=== PATIENT | male | born 1965 | race Caucasian/White ===

== ENCOUNTER 2022-12-10 23:45 | Observation (INO) | payer OTHER, SELFPAY ==
--- NOTE | ~2022-12-10 | CT_ITS ---
Non-contrast CT scan of the Abdomen and Pelvis Clinical indication: Abdominal pain Technique: 2.5 mm axial scans were obtained through the abdomen and pelvis without intravenous or or al contrast. Dose reduction technique was used on this scan by utilizing automated exposure control a nd iterative reconstruction technique. The dose-length product (DLP) was 870.28 mGy-cm. Findings: Images through the lung bases reveal no abnormalities. There is no evidence of renal or ureteral calculi. The kidneys and the ureters are nondilated. The liver, spleen, pancreas, gallbladder, and adrenals appear normal. There are atherosclerotic calci fications of the aorta. There is no evidence of bowel obstruction. There is moderate enlargement of stool multiple small spec kled radiodensities within the large bowel contents. Images through the pelvis were performed. There is no evidence of ascites or lymphadenopathy. Urinary bladder unremarkable. Prostate gland is enlarged. Impression: Moderate stool with small speckled radiodensities in the large bowel contents. Correlate for constipa tion and any possibility of pica or other foreign material ingestion. Reviewed, dictated and finalized at location . Impression: Moderate stool with small speckled radiodensities in the large bowel contents. Correlate for constipation and any possibility of pica or other foreign materia l ingestion.
[2022-12-10 23:47] VITALS: BP 140/60; PULSE 71; RESP 15; TEMP 36.4; O2SAT 100
[2022-12-11] VITALS (8 sets, daily range): BP systolic 115–152; BP diastolic 50–102; PULSE 70–78; RESP 11–20; TEMP 36.3–37.2; O2SAT 99–100; BMI 32.5
[2022-12-11 00:30] LABS: Basophils Percent Auto 0.2 % (0.2-1.2); Eosinophils Absolute Auto 0.1 K/mm3 (0-0.3); Eosinophils Percent Auto 0.7 % (0-4.4); Hematocrit 25.2 % (42.0-52.0); Hemoglobin 9.1 g/dL (14.0-18.0); Immature Granulocyte Absolute 0.03 K/mm3 (0.00-0.031); Immature Granulocyte Percent A 0.4 % (0-0.5); Lymphocytes Absolute Auto 0.67 K/mm3 (0.9-3.2); Mean Corpuscular HGB Conc 36.1 g/dl (32-36); Mean Corpuscular Hemoglobin 32.2 pg (26-34); Mean Platelet Volume 10.9 fl (7.4-10.4); Monocytes Absolute Auto 1.1 K/mm3 (0.1-0.6); Monocytes Percent Auto 12.5 % (2.6-8.5); Neutrophils Absolute Auto 6.6 K/mm3 (1.3-6.7); Neutrophils Percent Auto 78.2 % (45.5-73.1); Platelet Count Result 163 k/mm3 (150-375); Red Blood Count 2.83 M/mm3 (4.6-6.20); Red Cell Distribution Width 13.6 % (11.5-14.5); White Blood Count 8.4 K/mm3 (4.5-10.0)
[2022-12-11 00:44] LABS: Appearance Urine Clear (Clear); Bacteria Urine 1+ /hpf; Bilirubin Urine Negative (Negative); Blood Urine 2+ (Negative); Color Urine Yellow (Yellow); Glucose Urine UA 1+ mg/dL (Negative); Ketones Urine Negative (Negative); Leukocyte Esterase Ur 1+ LEU/UL (Negative); Nitrate Urine Negative (Negative); Non Pathogenic Casts 0-2; Protein Urine 3+ mg/dL (Negative); RBC Urine 0-2 /hpf (0-2); Specific Grav Ur 1.008 (1.001-1.035); Squamous Epithelial Cell Urine None seen /hpf (Few); Urobilinogen Urine 0.2 mg/dL (<2.0); WBC Clumps Urine Present /HPF; pH Urine 6.5 (5.0-9.0)
[2022-12-11 00:52] LABS: Alanine Aminotransferase 29 U/L (6-50); Albumin Level 3.8 g/dL (3.5-5.1); Alkaline Phosphatase 37 U/L (38-126); Anion Gap 14 mmol/L (8-16); Aspartate Amino Transferase 37 U/L (17-59); Bilirubin,Total 0.4 mg/dL (0.2-1.3); Blood Urea Nitrogen 64 mg/dL (9-20); Calcium 9.3 mg/dL (8.4-10.2); Carbon Dioxide 22 mmol/L (22-30); Chloride 82 mmol/L (98-107); Estimated CRCL calculation 16 ml/min; Estimated Glomerular Filt Rate 12; Glucose 69 mg/dL (65-110); Lipase 49 U/L (23-300); Potassium 3.5 mmol/L (3.4-5.0); Sodium 118 mmol/L (137-145)
[2022-12-11 01:01] LABS: Add Urine Microscopic? YES
[2022-12-11] MEDS: SODIUM CHLORIDE 0.9% IV 2,000 ML 999 ML IV CONT (02:05)
--- NOTE | 2022-12-11 05:00 | ED.GENADULT ---
HPI - General Adult General Chief complaint: Abdominal Pain Stated complaint: abd pain Time Seen by Provider: 12/11/22 00:28 History of Present Illness HPI narrative: this is a 49-year-old male who has been constipated x1 week. Patient has been taking multiple stool softeners and enemas without relief. Yesterday he started developed diffuse crampy abdominal pain throughout his entire abdomen. the pain is constant and getting worse. He has never had pain like this before there are no exacerbating relieving factors. He is passing gas. He had a small bowel movement yesterday. He denies fever chills nausea vomiting chest pain difficulty breathing. Patient has had an AV fistula placed for pending kidney failure. His assembler small products is Dr. Nguyen Related Data Allergies Allergy/AdvReac Type Severity Reaction Status Date / Time No Known Allergies Allergy Verified 12/10/22 23:54 [facility] Past Medical History Medical History Chronic kidney disease Diabetes Exam Narrative: APPEARANCE: No apparent distress. Head: atraumatic. EYES: EOMI, NOSE: Atraumatic NECK: Trachea midline RESPIRATORY: No increased rate of breathing, CTAB CARDIOVASCULAR: RRR, AV fistula in left upper extremity ABDOMINAL: Abdomen is soft nontender with no guarding or rebound MUSCULOSKELETAl: No obvious deformities NEURO: Alert. Moving 4/4 extremities SKIN:: Warm, dry. Normal color PSYCHIATRIC: Normal affect Course Vital Signs Vital signs: Vital Signs Temperature 97.5 F L 12/10/22 23:47 Pulse Rate 71 12/10/22 23:47 Respiratory Rate 15 12/10/22 23:47 Blood Pressure 140/60 12/10/22 23:47 Pulse Oximetry 100 12/10/22 23:47 Oxygen Delivery Room Air 12/10/22 23:47 Temperature 97.5 F L 12/10/22 23:47 Pulse Rate 75 12/11/22 03:13 Respiratory Rate 11 L 12/11/22 03:13 Blood Pressure 146/102 H 12/11/22 03:13 Pulse Oximetry 99 12/11/22 03:13 Oxygen Delivery Room Air 12/10/22 23:47 Medical Decision Making [facility] Narrative Medical decision making narrative: -Course: 49-year-old male presenting with 1 week of abdominal pain and constipation. CT showed a colon was distended with a large amount of stool and thickening of the rectal wall. This could be due to understand siddiqui versus a lesion. Additionally the patient's laboratory studies came back for significant hyponatremia and hypochloremia. The patient is on hydrochlorothiazide and is taking sodium bicarb. however I have no baseline of which to compare if this is his baseline state or worse than usual. Patient will be admitted hospital for further management of his hyponatremia and abdominal pain. 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 -Independent interpretation of studies: Sodium 118, chloride 82. BUN 64 and creatinine 4.9. urine showed 11-20 white blood cells and white blood cell clumps. Plus one leuk esterase. Patient notes he is having dysuria. Will be treated with ceftriaxone. -Discussion of Management/Consultants: Dr. Monroe - hospitalist -Interventions: 2 L normal saline -Shared decision making / Disposition: Admitted. Vital Signs Vital Signs: Vital Signs Temperature 97.5 F L 12/10/22 23:47 Pulse Rate 71 12/10/22 23:47 Respiratory Rate 15 12/10/22 23:47 Blood Pressure 140/60 12/10/22 23:47 Pulse Oximetry 100 12/10/22 23:47 Oxygen Delivery Room Air 12/10/22 23:47 Temperature 97.5 F L 12/10/22 23:47 Pulse Rate 75 12/11/22 03:13 Respiratory Rate 11 L 12/11/22 03:13 Blood Pressure 146/102 H 12/11/22 03:13 Pulse Oximetry 99 12/11/22 03:13 Oxygen Delivery Room Air 12/10/22 23:47 Lab Data 12/11/22 00:23 12/11/22 00:23 Labs: Lab Res
--- NOTE | 2022-12-11 05:13 | PM.IMHP ---
H&P: HPI History of Present Illness Date/Time: 12/11/22 05:13 Chief Complaint: Abdominal pain Narrative: 57-year-old male with past medical history significant for end-stage renal disease, patient had fistula placed is still maturing, type diabetes mellitus, hypertension, comes to the emergency room due to abdominal pain, nausea but no vomiting, cough. Denies any fevers, rigors, chills, sputum production, shortness of breath. Preliminary workup was significant for sodium [address] of abdomen and pelvis was reported as: Non-contrast CT scan of the Abdomen and Pelvis Clinical indication: Abdominal pain Technique:? 2.5 mm axial scans were obtained through the abdomen and pelvis without intravenous or oral contrast. Dose reduction technique was used on this scan by utilizing automated exposure control and iterative reconstruction technique. The dose-length product (DLP) was 870.28 mGy-cm. Findings:? Images through the lung bases reveal no abnormalities. There is no evidence of renal or ureteral calculi. The kidneys and the ureters are nondilated. The liver, spleen, pancreas, gallbladder, and adrenals appear normal. There are atherosclerotic calcifications of the aorta. ? There is no evidence of bowel obstruction. There is moderate enlargement of stool multiple small speckled radiodensities within the large bowel contents. Images through the pelvis were performed. There is no evidence of ascites or lymphadenopathy. Urinary bladder unremarkable. Prostate gland is enlarged. Impression: Moderate stool with small speckled radiodensities in the large bowel contents. Correlate for constipation and any possibility of pica or other foreign material ingestion. Review of Systems Review of Systems: Abdominal pain Constitutional: Constitutional: Denies chills, Denies fever(s), Denies night sweats and Reports poor appetite Eyes: Eyes: Denies change in vision ENT: Denies dysphagia and Denies odynophagia Cardiovascular: Cardiovascular: Denies chest pain, Denies irregular heart rhythm, Denies palpitations, Denies dyspnea on exertion, Denies orthopnea and Denies paroxysmal nocturnal dyspnea Respiratory: Respiratory: Denies chest congestion and Denies cough Gastrointestinal: Gastrointestinal: Reports abdominal pain, Denies melena, Reports bloating, Denies hematochezia, Reports constipation and Reports nausea Genitourinary: Genitourinary: Denies dysuria Musculoskeletal: Musculoskeletal: Denies arthralgias, Denies joint swelling and Denies muscle weakness Integumentary/Breasts: Skin/Breast: Denies rash Neurologic: Denies focal weakness and Denies Sensory deficit (Neuro) Psychiatric: Psychiatric: Reports no additional psychiatric complaints and Reports as per HPI Endocrine: Endocrine: Denies cold intolerance, Denies excessive sweating, Denies flushing, Denies heat intolerance, Denies polyphagia, Denies polydipsia, Denies polyuria and Denies palpitations Hematologic/Lymphatic: Hematologic/Lymphatic: Reports no additional hematologic/lymphatic complaints and Reports as per HPI Allergic/Immunologic: Allergic/Immunologic: Reports no additional allergic/immunologic complaints and Reports as per HPI PMFSH Past Medical History Medical History Chronic kidney disease Diabetes Social History Social History Smoking status: Never smoker Alcohol intake: current Drinks per week: 5 Substance use: never Lack of Transportation: No Lack of Food: Never True Current Housing: I Have Housing Concerned About Future Housing: No Difficulty Paying Gas/Electric Bills: No Difficulty Paying for Meds: No Currently Unemployed: No Education: Master's Degree or Higher Difficulty w/ Childcare or Family Care: No Spiritual care concerns: No Meds Home Medications and Allergies Home Medications Medication
--- NOTE | 2022-12-11 06:46 | ADMGEN ---
This patient, Ricco Foote, was admitted to [facility] Surg Room 306-02. Patient/family oriented to hospital policies and general routines including ID bracelet, bed and alarms, visiting hours, pain management, procedures, bathroom and other care routines, personal items, smoking policy, room service/diet, and visiting hours. Information on how to activate the Rapid Response Team has been discussed. Patient/Family are encouraged to report perceived risks to care and to ask questions if they do not understand what they are told or what they should do.
[2022-12-11 07:42] LABS: Glucose Point of Care 38 mg/dl (65-105)
[2022-12-11 07:58] LABS: Glucose Point of Care 84 mg/dl (65-105)
[2022-12-11] MEDS: SODIUM CHLORIDE 0.9% IV 1,000 ML 75 ML IV CONT (08:38)
[2022-12-11 08:42] LABS: Alanine Aminotransferase 27 U/L (6-50); Albumin Level 3.4 g/dL (3.5-5.1); Alkaline Phosphatase 35 U/L (38-126); Anion Gap 13 mmol/L (8-16); Aspartate Amino Transferase 32 U/L (17-59); Bilirubin,Total 0.3 mg/dL (0.2-1.3); Blood Urea Nitrogen 60 mg/dL (9-20); Calcium 8.8 mg/dL (8.4-10.2); Carbon Dioxide 20 mmol/L (22-30); Chloride 91 mmol/L (98-107); Estimated CRCL calculation 17 ml/min; Estimated Glomerular Filt Rate 13; Glucose 107 mg/dL (65-110); Potassium 3.4 mmol/L (3.4-5.0); Sodium 124 mmol/L (137-145)
--- NOTE | 2022-12-11 09:00 | PCRCNOTE ---
RT spoke to patient. Patient refused hospital CPAP at this time.
--- NOTE | 2022-12-11 09:53 | P.PNIM_ITS ---
Progress Note: A&P Assessment and Plan (1) Hyponatremia: Code(s): E87.1 - Hypo-osmolality and hyponatremia Status: Acute Assessment and Plan: * Na upon arrival 118 * currently 124 * 2L bolus given in the ED * Stated that is chronic * Continue fluids for now * Continue to trend labs * Urine studies ordered * Nephrology consulted thank you for your help (2) Constipation: Qualifiers: Constipation type: unspecified constipation type Qualified Code(s): K59.00 - Constipation, unspecified Code(s): K59.00 - Constipation, unspecified Status: Acute Assessment and Plan: * Presented to the ED with complaints of constipation * This would be his third visit over the last week * CT does show moderate stool burden * Miralax, colace, lactulose, suppositories, enemas ordered * Consider GI consult * Digital disimpaction (3) Chronic kidney disease: Qualifiers: Chronic kidney disease stage: stage 5, not on chronic dialysis Qualified Code(s): N18.5 - Chronic kidney disease, stage 5 Code(s): N18.9 - Chronic kidney disease, unspecified Status: Acute Assessment and Plan: * Known history * Current BUN/Cr 60/4.70 * Fistula present awaiting to mature * Nephrology consulted * Continue to trend labs (4) Diabetes: Qualifiers: Diabetes mellitus complication status: without complication Diabetes mellitus 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 Diabetes mellitus type: type 2 Qualified Code(s): E11.9 - Type 2 diabetes mellitus without complications; Z79.4 - [facility]CI (current) use of insulin Code(s): E11.9 - Type 2 diabetes mellitus without complications Status: Acute Assessment and Plan: * Current glucose 107 * Continue home meds * Trend glucose * Adjust medication as indicated (5) Hypertension: Qualifiers: Hypertension type: primary hypertension Qualified Code(s): I10 - Essential (primary) hypertension Code(s): I10 - Essential (primary) hypertension Status: Acute Assessment and Plan: * BP is 152/76 * Continue home losartan, amlodipine, carvedilol * Trend blood pressure * adjust therapy as indicated Time Spent With Patient Time: 48 minutes Time with patient: Greater than 35 minutes Subjective Date/time seen: 12/11/22 09:00 Interval history: 12/11/22899 Patient is complaining of being uncomfortable. Patient stated that he just was released from [facility] last Wednesday and he was therefore constipation however he did have a small bowel movement there. He then went to another hospital. He stated that at [facility] given MiraLax and he can remember what else they gave him at the other hospital. he also is a patient of Dr. Alexander. He has not received any current dialysis and stated that he has not needed dialysis yet. He also stated that his sodium is chronically low. He denies any further symptoms including chest pain, shortness a breath, nausea, vomiting, diarrhea constipation. 12/11/22? 05:13 57-year-old male with past medical history significant for end-stage renal disease, patient had fistula placed is still maturing, type diabetes mellitus, hypertension, comes to the emergency room due to abdominal pain, nausea but no vomiting, cough.? Denies any fevers, rigors, chills, sputum production, shortness of breath. Preliminary workup was signific
--- NOTE | 2022-12-11 09:53 | PM.IMPN ---
Progress Note: A&P Assessment and Plan (1) Hyponatremia: Code(s): E87.1 - Hypo-osmolality and hyponatremia Status: Acute Assessment and Plan: Na upon arrival 118 currently 124 2L bolus given in the ED Stated that is chronic Continue fluids for now Continue to trend labs Urine studies ordered Nephrology consulted thank you for your help (2) Constipation: Qualifiers: Constipation type: unspecified constipation type Qualified Code(s): K59.00 - Constipation, unspecified Code(s): K59.00 - Constipation, unspecified Status: Acute Assessment and Plan: Presented to the ED with complaints of constipation This would be his third visit over the last week CT does show moderate stool burden Miralax, colace, lactulose, suppositories, enemas ordered Consider GI consult Digital disimpaction (3) Chronic kidney disease: Qualifiers: Chronic kidney disease stage: stage 5, not on chronic dialysis Qualified Code(s): N18.5 - Chronic kidney disease, stage 5 Code(s): N18.9 - Chronic kidney disease, unspecified Status: Acute Assessment and Plan: Known history Current BUN/Cr 60/4.70 Fistula present awaiting to mature Nephrology consulted Continue to trend labs (4) Diabetes: Qualifiers: Diabetes mellitus complication status: without complication Diabetes mellitus intermediate card tender insulin use: with intermediate card tender use Diabetes mellitus type: type 2 Qualified Code(s): E11.9 - Type 2 diabetes mellitus without complications; Z79.4 - technician terminal 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 (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) use of insulin Code(s): E11.9 - Type 2 diabetes mellitus without complications Status: Acute Assessment and Plan: Current glucose 107 Continue home meds Trend glucose Adjust medication as indicated (5) Hypertension: Qualifiers: Hypertension type: primary hypertension Qualified Code(s): I10 - Essential (primary) hypertension Code(s): I10 - Essential (primary) hypertension Status: Acute Assessment and Plan: BP is 152/76 Continue home losartan, amlodipine, carvedilol Trend blood pressure adjust therapy as indicated Time Spent With Patient Time: 48 minutes Time with patient: Greater than 35 minutes Subjective Date/time seen: 12/11/22 09:00 Interval history: 12/11/22899 Patient is complaining of being uncomfortable. Patient stated that he just was released from [facility] last Wednesday and he was therefore constipation however he did have a small bowel movement there. He then went to another hospital. He stated that at [facility] given MiraLax and he can remember what else they gave him at the other hospital. he also is a patient of Dr. Alexander. He has not received any current dialysis and stated that he has not needed dialysis yet. He also stated that his sodium is chronically low. He denies any further symptoms including chest pain, shortness a breath, nausea, vomiting, diarrhea constipation. 12/11/22? 05:13 57-year-old male with past medical history significant for end-stage renal disease, patient had fistula placed is still maturing, type diabetes mellitus, hypertension, comes to the emergency room due to abdominal pain, nausea but no vomiting, cough.? Denies any fevers, rigors, chills, sputum production, shortness of breath. Preliminary workup was significant for sodium [address] of abdomen and pelvis pending final report at this time Review of Systems Review of Systems: All systems reviewed & are unremarkable except as noted in HPI and below Exam Narrative: General: well-nourished, well-appearing 57-year-old male, sitting up in bed, comfortable, NARD Neuro: awake, alert and oriented x4, speech clear, no focal neuro deficits noted HEENMT: normocephalic, atraumatic, EOMI, sclerae anicteric, moist oral mucosa Respiratory: Clear to
--- NOTE | 2022-12-11 10:51 | PM.CNNEP ---
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, on sevelamer for high phosphorus -abdominal pain and constipation: Urine lytes, osmolality ordered already, maintain current, treat constipation On lactulose will follow (2) Chronic kidney disease: Qualifiers: Chronic kidney disease stage: stage 5, not on chronic dialysis Qualified Code(s): N18.5 - Chronic kidney disease, stage 5 Code(s): N18.9 - Chronic kidney disease, unspecified Status: Acute Plan see above discussion History of Present Illness Reason for Consult Consult date: 12/11/22 Reason for consult: chronic renal failure and hyponatremia Chief Complaint Chief complaint: Hyponatremia, Abdominal Pain History of Present Illness Narrative: 57 yo male, known for CKD stage 5 and DM, HTN, anemia, SHPT, recent admission to [facility] for hyponatremia, weakness, unwell, was on HCTZ and this was discontinued. His sodium improved and patient was placed on furosemide to help with fluid management. Now readmitted with nausea without emesis. Abdominal with constipation x 1 week. There is no swelling or SOB, imaging study CT through lower chest does not show fluid retention, abdominal CT shows the stool retention. Serum sodium at admission was 118, creatinine 6.9 mg/dL. Urine labs not done at admission. not on diuretics currently, is on dapagliflozin. Drank3 L of water yesterday, making urine, no swelling or SOB. Has slight headache and nausea, no other symptoms. No cramps, no falls. Is on sodium chloride drip and has improvement in sodium to 124. No uremic features, poor appetite currently due to the constipation. Has soft abdomen but diffuse abdominal pain. Passing gas, little piece of stool passed this am. Has an AVF in the left upper arm that is not ready to be used yet for dialysis. He has to have an angiogram to see if angioplasty of the AVF is required. Negative other systemic issues Review of Systems Review of Systems: All systems reviewed & are unremarkable except as noted in HPI and below (hpi) [facility] Past Medical History Medical History Chronic kidney disease Diabetes Social History Social History Smoking status: Never smoker Alcohol intake: current Drinks per week: 5 Substance use: never Lack of Transportation: No Lack of Food: Never True Current Housing: I Have Housing Concerned About Future Housing: No Difficulty Paying Gas/Electric Bills: No Difficulty Paying for Meds: No Currently Unemployed: No Education: Master's Degree or Higher Difficulty w/ Childcare or Family Care: No Spiritual care concerns: No Comments left upper arm AVF created in [place] [facility] Home Medications and Allergies Home Medications Medication Instructions Recorded Confirmed Type amlodipine 10 mg tablet 10 mg PO DAILY 12/11/22 12/11/22 History aspirin 81 mg tablet 81 mg PO DAILY 12/11/22 12/11/22 History bupropion HCl 150 mg 24 hr tablet, 150 mg PO DAILY 12/11/22 12/11/22 History extended release calcitriol 0.25 mcg capsule 0.25 mcg PO DAILY 12/11/22 12/11/22 History carvedilol 12.5 mg tablet 12.5 mg PO BID 12/11/22 12/11/22 History clopidogrel 75 mg tablet 75 mg PO DAILY 12/11/22 12/11/22 History dapagliflozin propanediol 10 mg 10 mg PO DAILY 12/11/22 12/11/22 History tablet (Farxiga) docusate sodium 100 mg capsule 100 mg PO DAILY PRN Constipation 12/11/22
[2022-12-11] MEDS: calcitrioL 0.25 MCG CAPSULE PO (11:27)
[2022-12-11] MEDS: SODIUM BICARBONATE TAB 650 MG TABLET PO ×2 (11:27→17:38)
[2022-12-11] MEDS: buPROPion HCL XL (24 HR) 150 MG TABCR PO (11:27)
[2022-12-11] MEDS: PRAVASTATIN SODIUM 20 MG TABLET 40 MG PO (11:27)
[2022-12-11] MEDS: amLODIPine BESYLATE 5 MG TABLET 10 MG PO (11:28)
[2022-12-11] MEDS: LOSARTAN POTASSIUM 50 MG TABLET PO ×2 (11:28→21:25)
[2022-12-11] MEDS: SEVELAMER CARBONATE 800 MG TABLET PO ×2 (11:28→17:37)
[2022-12-11] MEDS: carvediloL 12.5 MG TABLET PO ×2 (11:28→17:37)
[2022-12-11] MEDS: ASPIRIN 81 MG ENTERIC TABLET PO (11:28)
[2022-12-11] MEDS: CLOPIDOGREL BISULFATE 75 MG TABLET PO (11:28)
[2022-12-11 11:29] LABS: Glucose Point of Care 106 mg/dl (65-105)
[2022-12-11] MEDS: ACETAMINOPHEN 500 MG TABLET 1000 MG PO ×2 (12:27→21:25)
[2022-12-11] MEDS: MAGNESIUM CITRATE 300 ML BTL PO (12:27)
[2022-12-11] MEDS: DOCUSATE SODIUM 100 MG CAPSULE PO (12:28)
[2022-12-11] MEDS: BISACODYL 10 MG SUPPOSITORY RECTAL (12:28)
[2022-12-11] MEDS: LACTULOSE 20 GM/30 ML UDC PO (12:28)
[2022-12-11 16:41] LABS: Glucose Point of Care 166 mg/dl (65-105)
[2022-12-11] MEDS: METOCLOPRAMIDE HCL 5 MG TABLET PO ×2 (17:37→21:25)
[2022-12-11 18:07] LABS: Creatinine Urine 31.3 mg/dL; Urea Random Urine 259 MG/DL
[2022-12-11 18:19] LABS: Sodium Urine Random 15 meq/L
[2022-12-11 20:53] LABS: Glucose Point of Care 181 mg/dl (65-105)
[2022-12-12] MEDS: SODIUM CHLORIDE 0.9% IV 1,000 ML 75 ML IV CONT ×2 (03:03→18:52)
[2022-12-12 05:23] VITALS: BP 155/55; PULSE 91; RESP 16; TEMP 36.6; O2SAT 100
[2022-12-12] MEDS: METOCLOPRAMIDE HCL 5 MG TABLET PO ×4 (05:35→20:46)
[2022-12-12 06:24] LABS: Basophils Percent Auto 0.3 % (0.2-1.2); Eosinophils Absolute Auto 0.1 K/mm3 (0-0.3); Eosinophils Percent Auto 0.9 % (0-4.4); Hematocrit 27.9 % (42.0-52.0); Hemoglobin 9.6 g/dL (14.0-18.0); Immature Granulocyte Absolute 0.03 K/mm3 (0.00-0.031); Immature Granulocyte Percent A 0.3 % (0-0.5); Lymphocytes Percent Auto 6.7 % (18.3-44.2); Mean Corpuscular HGB Conc 34.4 g/dl (32-36); Mean Corpuscular Hemoglobin 31.5 pg (26-34); Mean Corpuscular Volume 91.5 fl (80-100); Mean Platelet Volume 11.3 fl (7.4-10.4); Monocytes Absolute Auto 1.3 K/mm3 (0.1-0.6); Monocytes Percent Auto 12.5 % (2.6-8.5); Neutrophils Absolute Auto 8.3 K/mm3 (1.3-6.7); Neutrophils Percent Auto 79.3 % (45.5-73.1); Platelet Count Result 185 k/mm3 (150-375); Red Blood Count 3.05 M/mm3 (4.6-6.20); Red Cell Distribution Width 13.6 % (11.5-14.5); White Blood Count 10.5 K/mm3 (4.5-10.0)
[2022-12-12 06:43] LABS: Alanine Aminotransferase 29 U/L (6-50); Albumin Level 3.9 g/dL (3.5-5.1); Alkaline Phosphatase 43 U/L (38-126); Anion Gap 16 mmol/L (8-16); Aspartate Amino Transferase 28 U/L (17-59); Bilirubin,Total 0.3 mg/dL (0.2-1.3); Blood Urea Nitrogen 57 mg/dL (9-20); Calcium 9.7 mg/dL (8.4-10.2); Carbon Dioxide 20 mmol/L (22-30); Chloride 95 mmol/L (98-107); Estimated CRCL calculation 15 ml/min; Estimated Glomerular Filt Rate 11; Glucose 145 mg/dL (65-110); Potassium 3.6 mmol/L (3.4-5.0); Sodium 131 mmol/L (137-145)
[2022-12-12 08:19] LABS: Glucose Point of Care 154 mg/dl (65-105)
[2022-12-12] MEDS: SEVELAMER CARBONATE 800 MG TABLET PO ×3 (08:37→17:11)
[2022-12-12] MEDS: amLODIPine BESYLATE 5 MG TABLET 10 MG PO (08:37)
[2022-12-12] MEDS: buPROPion HCL XL (24 HR) 150 MG TABCR PO (08:37)
[2022-12-12] MEDS: calcitrioL 0.25 MCG CAPSULE PO (08:37)
[2022-12-12] MEDS: LOSARTAN POTASSIUM 50 MG TABLET PO ×2 (08:37→20:46)
[2022-12-12] MEDS: SODIUM BICARBONATE TAB 650 MG TABLET PO ×2 (08:37→17:11)
[2022-12-12 08:38] VITALS: PULSE 91
[2022-12-12] MEDS: PRAVASTATIN SODIUM 20 MG TABLET 40 MG PO (08:38)
[2022-12-12] MEDS: carvediloL 12.5 MG TABLET PO ×2 (08:38→17:11)
[2022-12-12] MEDS: CLOPIDOGREL BISULFATE 75 MG TABLET PO (08:38)
[2022-12-12] MEDS: ASPIRIN 81 MG ENTERIC TABLET PO (09:39)
[2022-12-12 11:37] LABS: Glucose Point of Care 180 mg/dl (65-105)
--- NOTE | 2022-12-12 12:24 | PM.IMPN ---
Progress Note: A&P Assessment and Plan (1) Hyponatremia: Code(s): E87.1 - Hypo-osmolality and hyponatremia Status: Acute Assessment and Plan: Improving, monitor (2) Constipation: Qualifiers: Constipation type: unspecified constipation type Qualified Code(s): K59.00 - Constipation, unspecified Code(s): K59.00 - Constipation, unspecified Status: Acute Assessment and Plan: Bowel regimen Consult GI, suspect IBS (3) Chronic kidney disease: Qualifiers: Chronic kidney disease stage: stage 5, not on chronic dialysis Qualified Code(s): N18.5 - Chronic kidney disease, stage 5 Code(s): N18.9 - Chronic kidney disease, unspecified Status: Acute Assessment and Plan: Fistula in place Has not started hemodialysis (4) Diabetes: Qualifiers: Diabetes mellitus complication status: without complication Diabetes mellitus snf insulin use: with snf use Diabetes mellitus type: type 2 Qualified Code(s): E11.9 - Type 2 diabetes mellitus without complications; Z79.4 - buttermaker (current) use of insulin Code(s): E11.9 - Type 2 diabetes mellitus without complications Status: Acute Assessment and Plan: Accu-Cheks, sliding scale insulin, check A1c Plan DVT prophylaxis with SCDs GI prophylaxis not indicated Code status full code Subjective Date/time seen: 12/12/22 12:24 Interval history: 57-year-old male with past medical history significant for end-stage renal disease, patient had fistula placed is still maturing, type diabetes mellitus, hypertension, comes to the emergency room due to abdominal pain, nausea but no vomiting, cough, currently being treated for constipation. Patient states he feels better than yesterday because he had a small bowel movement. Still uncomfortable, worried because it keeps coming back. He states he goes back and forth from diarrhea and constipation all the time and is done with this experience and would like it treated before he goes home. Review of Systems Review of Systems: 12 point review of systems was assessed and was negative except as noted in the HPI Exam Narrative: General: No acute distress, alert and oriented per baseline HEENT: Atraumatic, normocephalic, mucous membranes moist CV: Regular rate and rhythm, S1, S2 Lungs: Clear to auscultation bilaterally, no rales or crackles noted, no wheezes, good air entry Abdomen: Soft, nontender, nondistended Extremities: Normal to inspection Skin: No rashes noted, no lesions or wounds seen Psych: Euthymic, normal affect Objective Data Vital Signs Vital Signs: Vital Signs - 24 hr 12/11/22 14:00 12/11/22 17:37 12/11/22 20:34 Temperature 98.6 F 97.6 F Pulse Rate 70 70 78 Respiratory Rate 20 16 Blood Pressure 115/50 L 146/66 H Pulse Oximetry 100 100 Oxygen Delivery 12/12/22 05:23 12/12/22 07:47 12/12/22 08:38 Temperature 97.9 F Pulse Rate 91 91 Respiratory Rate 16 Blood Pressure 155/55 H Pulse Oximetry 100 Oxygen Delivery Room Air Intake/Output Intake/Output: Intake & Output 12/09/22 12/10/22 12/11/22 12/12/22 23:59 23:59 23:59 23:59 Intake Total 4490 240 Balance 4490 240 Meds/Results Medications: Active Medications Generic Name Dose Route Start Last Admin Trade Name Polloq PRN Reason Stop Dose Admin Acetaminophen 1,000 mg 12/11/22 10:08 12/11/22 21:25 Acetaminophen 500 Mg Tablet PO 1,000 mg Q6H PRN Administration Mild Pain (1-3) or Fever Amlodipine Besylate 10 mg 12/11/22 09:50 12/12/22 08:37 Amlodipine Besylate 5 Mg Tablet PO 10 mg DAILY ADAN Administration Aspirin 81 mg 12/11/22 09:50 12/12/22 09:39 Aspirin 81 Mg Enteric Tablet PO 01/11/23 09:49 81 mg DAILY ADAN Administration Bisacodyl 10 mg 12/11/22 09:50 12/12/22 09:39 Bisacodyl 10 Mg Suppository RECTAL Not Given QAM [facility] Bupropion HCl 150
[2022-12-12 14:00] VITALS: BP 140/55; PULSE 76; RESP 16; TEMP 37.1; O2SAT 100
[2022-12-12 17:11] VITALS: PULSE 76
[2022-12-12 17:12] LABS: Glucose Point of Care 157 mg/dl (65-105)
[2022-12-12] MEDS: ACETAMINOPHEN 500 MG TABLET 1000 MG PO (20:46)
[2022-12-12] MEDS: DOCUSATE SODIUM 100 MG CAPSULE PO (20:46)
[2022-12-12 22:00] VITALS: BP 121/68; PULSE 84; RESP 20; TEMP 36.5; O2SAT 98
[2022-12-12 22:24] LABS: Glucose Point of Care 153 mg/dl (65-105)
[2022-12-12 22:58] VITALS: O2SAT 98
[2022-12-13 05:26] LABS: Basophils Percent Auto 0.3 % (0.2-1.2); Eosinophils Absolute Auto 0.1 K/mm3 (0-0.3); Eosinophils Percent Auto 1.3 % (0-4.4); Hematocrit 24.8 % (42.0-52.0); Hemoglobin 8.4 g/dL (14.0-18.0); Immature Granulocyte Absolute 0.05 K/mm3 (0.00-0.031); Immature Granulocyte Percent A 0.5 % (0-0.5); Lymphocytes Absolute Auto 0.97 K/mm3 (0.9-3.2); Lymphocytes Percent Auto 9.9 % (18.3-44.2); Mean Corpuscular HGB Conc 33.9 g/dl (32-36); Mean Corpuscular Hemoglobin 31.7 pg (26-34); Mean Corpuscular Volume 93.6 fl (80-100); Mean Platelet Volume 10.3 fl (7.4-10.4); Monocytes Absolute Auto 1.2 K/mm3 (0.1-0.6); Monocytes Percent Auto 12.4 % (2.6-8.5); Neutrophils Absolute Auto 7.4 K/mm3 (1.3-6.7); Neutrophils Percent Auto 75.6 % (45.5-73.1); Platelet Count Result 148 k/mm3 (150-375); Red Blood Count 2.65 M/mm3 (4.6-6.20); Red Cell Distribution Width 13.9 % (11.5-14.5); White Blood Count 9.8 K/mm3 (4.5-10.0)
[2022-12-13 05:39] LABS: Alanine Aminotransferase 25 U/L (6-50); Albumin Level 3.5 g/dL (3.5-5.1); Alkaline Phosphatase 35 U/L (38-126); Anion Gap 12 mmol/L (8-16); Aspartate Amino Transferase 17 U/L (17-59); Bilirubin,Total 0.3 mg/dL (0.2-1.3); Blood Urea Nitrogen 60 mg/dL (9-20); Calcium 9.2 mg/dL (8.4-10.2); Carbon Dioxide 18 mmol/L (22-30); Chloride 101 mmol/L (98-107); Estimated CRCL calculation 15 ml/min; Estimated Glomerular Filt Rate 12; Glucose 144 mg/dL (65-110); Potassium 3.7 mmol/L (3.4-5.0); Sodium 131 mmol/L (137-145)
[2022-12-13] MEDS: METOCLOPRAMIDE HCL 5 MG TABLET PO (05:43)
[2022-12-13 06:00] VITALS: BP 131/55; PULSE 78; RESP 20; TEMP 37.2; O2SAT 98
[2022-12-13] MEDS: CLOPIDOGREL BISULFATE 75 MG TABLET PO (08:06)
[2022-12-13] MEDS: buPROPion HCL XL (24 HR) 150 MG TABCR PO (08:06)
[2022-12-13] MEDS: SODIUM BICARBONATE TAB 650 MG TABLET PO (08:06)
[2022-12-13] MEDS: ASPIRIN 81 MG ENTERIC TABLET PO (08:06)
[2022-12-13] MEDS: PRAVASTATIN SODIUM 20 MG TABLET 40 MG PO (08:06)
[2022-12-13] MEDS: calcitrioL 0.25 MCG CAPSULE PO (08:06)
[2022-12-13] MEDS: LOSARTAN POTASSIUM 50 MG TABLET PO (08:06)
[2022-12-13] MEDS: DOCUSATE SODIUM 100 MG CAPSULE PO (08:07)
[2022-12-13] MEDS: ACETAMINOPHEN 500 MG TABLET 1000 MG PO (08:07)
[2022-12-13] MEDS: amLODIPine BESYLATE 5 MG TABLET 10 MG PO (08:07)
[2022-12-13] MEDS: SEVELAMER CARBONATE 800 MG TABLET PO (08:07)
[2022-12-13 08:16] LABS: Glucose Point of Care 229 mg/dl (65-105)
[2022-12-13 08:42] VITALS: PULSE 75
[2022-12-13] MEDS: carvediloL 12.5 MG TABLET PO (08:42)
--- NOTE | 2022-12-13 09:24 | PM.IMPN ---
Progress Note: A&P Assessment and Plan (1) Hyponatremia: Code(s): E87.1 - Hypo-osmolality and hyponatremia Status: Acute Assessment and Plan: Unchanged Appreciate nephrology consultation (2) Constipation: Qualifiers: Constipation type: unspecified constipation type Qualified Code(s): K59.00 - Constipation, unspecified Code(s): K59.00 - Constipation, unspecified Status: Acute Assessment and Plan: Bowel regimen Consult GI, suspect IBS (3) Chronic kidney disease: Qualifiers: Chronic kidney disease stage: stage 5, not on chronic dialysis Qualified Code(s): N18.5 - Chronic kidney disease, stage 5 Code(s): N18.9 - Chronic kidney disease, unspecified Status: Acute Assessment and Plan: Fistula in place Has not started hemodialysis (4) Diabetes: Qualifiers: Diabetes mellitus complication status: without complication Diabetes mellitus long term acute care registered nurse insulin use: with long term acute care registered nurse use Diabetes mellitus type: type 2 Qualified Code(s): E11.9 - Type 2 diabetes mellitus without complications; Z79.4 - keno terminal operator (current) use of insulin Code(s): E11.9 - Type 2 diabetes mellitus without complications Status: Acute Assessment and Plan: Accu-Cheks, sliding scale insulin, A1c pending Blood glucose reviewed 12/13 Plan DVT prophylaxis with SCDs GI prophylaxis not indicated Code status full code Subjective Date/time seen: 12/13/22 09:24 Interval history: 57-year-old male with past medical history significant for end-stage renal disease, patient had fistula placed is still maturing, type diabetes mellitus, hypertension, comes to the emergency room due to abdominal pain, nausea but no vomiting, cough, currently being treated for constipation. Patient states he feels better than yesterday because he had a small bowel movement. Still uncomfortable, worried because it keeps coming back. He states he goes back and forth from diarrhea and constipation all the time and is done with this experience and would like it treated before he goes home. Review of Systems Review of Systems: 12 point review of systems was assessed and was negative except as noted in the HPI Exam Narrative: General: No acute distress, alert and oriented per baseline HEENT: Atraumatic, normocephalic, mucous membranes moist CV: Regular rate and rhythm, S1, S2 Lungs: Clear to auscultation bilaterally, no rales or crackles noted, no wheezes, good air entry Abdomen: Soft, nontender, nondistended Extremities: Normal to inspection Skin: No rashes noted, no lesions or wounds seen Psych: Euthymic, normal affect Objective Data Vital Signs Vital Signs: Vital Signs - 24 hr 12/12/22 14:00 12/12/22 17:11 12/12/22 19:55 Temperature 98.8 F Pulse Rate 76 76 Respiratory Rate 16 Blood Pressure 140/55 L Pulse Oximetry 100 Oxygen Delivery Room Air 12/12/22 22:00 12/12/22 22:58 12/13/22 06:00 Temperature 97.7 F 99 F Pulse Rate 84 78 Respiratory Rate 20 20 Blood Pressure 121/68 131/55 L Pulse Oximetry 98 98 98 Oxygen Delivery Room Air 12/13/22 08:42 Temperature Pulse Rate 75 Respiratory Rate Blood Pressure Pulse Oximetry Oxygen Delivery Intake/Output Intake/Output: Intake & Output 12/10/22 12/11/22 12/12/22 12/13/22 23:59 23:59 23:59 23:59 Intake Total 4490 2220 1200 Output Total 650 Balance 4490 2220 550 Meds/Results Medications: Active Medications Generic Name Dose Route Start Last Admin Trade Name Freq PRN Reason Stop Dose Admin Acetaminophen 1,000 mg 12/11/22 10:08 12/13/22 08:07 Acetaminophen 500 Mg Tablet PO 1,000 mg Q6H PRN Administration Mild Pain (1-3) or Fever Amlodipine Besylate 10 mg 12/11/22 09:50 12/13/22 08:07 Amlodipine Besylate 5 Mg Tablet PO 10 mg DAILY ADAN Administration Aspirin 81 mg 12/11/22 09:50 12/13/22 08:0
--- NOTE | 2022-12-13 10:25 | WPDGICN ---
Assessment and Plan Assessment and plan (1) Constipation: Qualifiers: Constipation type: unspecified constipation type Qualified Code(s): K59.00 - Constipation, unspecified Code(s): K59.00 - Constipation, unspecified Status: Acute Assessment and Plan: Patient admitted with constipation and abdominal pain. This is resolved at present. Long discussion with patient suggesting he may try MiraLax on a daily basis abdomen this necessary. Likely he may only need this twice a week. He may supplement this with a stool softener such as Colace or Metamucil. Screening colonoscopy advised at age 59. If constipation persists she should follow up in the GI office electively. Otherwise should follow up with primary care service for ongoing medical management. Patient may be discharged home from GI perspective. (2) Chronic kidney disease: Qualifiers: Chronic kidney disease stage: stage 5, not on chronic dialysis Qualified Code(s): N18.5 - Chronic kidney disease, stage 5 Code(s): N18.9 - Chronic kidney disease, unspecified Status: Acute Assessment and Plan: Patient followed by Nephrology for with chronic kidney disease appears be end-stage dialysis may be anticipated some point. GI Consult Note Consult date/time: 12/13/22 10:25 Reason for consult: Constipation. HPI: Ricco Foote is a 57 year old male Admitted to the hospital with constipation. Patient states he had good bowel movement last evening. Currently feels good. Tolerating diet. Anxious to go home. Denies abdominal pain. He has had no bleeding. Patient reports that prior to admission he apparently was seen at a different emergency room in therapy was initiated. At home he is variously taken Colace, Dulcolax, Metamucil. And occasionally MiraLax. He has not taken these on routine basis. Patient did have a screening colonoscopy at age 49 that was unremarkable. Patient denies any recent bleeding. He has had no weight loss. Patient with underlying end-stage renal disease. Dialysis anticipated at some point. Review of Systems Review of Systems: Review of systems noncontributory. [facility] Past Medical History Medical History Chronic kidney disease Diabetes Social History Social History Smoking status: Never smoker Alcohol intake: current Drinks per week: 5 Substance use: never Lack of Transportation: No Lack of Food: Never True Current Housing: I Have Housing Concerned About Future Housing: No Difficulty Paying Gas/Electric Bills: No Difficulty Paying for Meds: No Currently Unemployed: No Education: Master's Degree or Higher Difficulty w/ Childcare or Family Care: No Spiritual care concerns: No Meds Home Medications and Allergies Home Medications Medication Instructions Recorded Confirmed Type amlodipine 10 mg tablet 10 mg PO DAILY 12/11/22 12/11/22 History aspirin 81 mg tablet 81 mg PO DAILY 12/11/22 12/11/22 History bupropion HCl 150 mg 24 hr tablet, 150 mg PO DAILY 12/11/22 12/11/22 History extended release calcitriol 0.25 mcg capsule 0.25 mcg PO DAILY 12/11/22 12/11/22 History carvedilol 12.5 mg tablet 12.5 mg PO BID 12/11/22 12/11/22 History clopidogrel 75 mg tablet 75 mg PO DAILY 12/11/22 12/11/22 History dapagliflozin propanediol 10 mg 10 mg PO DAILY 12/11/22 12/11/22 History tablet (Farxiga) docusate sodium 100 mg capsule 100 mg PO DAILY PRN Constipation 12/11/22 12/11/22 History (Colace) insulin detemir U-100 100 unit/mL 10 unit subcut DAILY 12/11/22 12/11/22 History (3 mL) subcutaneous pen (Levemir FlexPen) losartan 50 mg tablet 50 mg PO BID 12/11/22 12/11/22 History pravastatin 40 mg tablet 40 mg PO DAILY 12/11/22 12/11/22 History psyllium 1 packet PO DAILY PRN Constipation 12/11/22 12/11/22 History sevelamer HCl 800
--- NOTE | 2022-12-13 11:26 | P.DS_ITS ---
DS: Admitting Diagnosis Discharge Date 12/13/2022 Admitting Diagnosis Abdominal pain DS: Discharge Diagnosis Discharge Diagnosis (1) Hyponatremia: Code(s): E87.1 - Hypo-osmolality and hyponatremia Status: Acute Assessment and Plan: * Na upon arrival 118 * currently 124 * 2L bolus given in the ED * Stated that is chronic * Continue fluids for now * Continue to trend labs * Urine studies ordered * Nephrology consulted thank you for your help (2) Constipation: Qualifiers: Constipation type: unspecified constipation type Qualified Code(s): K59.00 - Constipation, unspecified Code(s): K59.00 - Constipation, unspecified Status: Acute Assessment and Plan: * Presented to the ED with complaints of constipation * This would be his third visit over the last week * CT does show moderate stool burden * Miralax, colace, lactulose, suppositories, enemas ordered * Consider GI consult * Digital disimpaction (3) Chronic kidney disease: Qualifiers: Chronic kidney disease stage: stage 5, not on chronic dialysis Qualified Code(s): N18.5 - Chronic kidney disease, stage 5 Code(s): N18.9 - Chronic kidney disease, unspecified Status: Acute Assessment and Plan: * Known history * Current BUN/Cr 60/4.70 * Fistula present awaiting to mature * Nephrology consulted * Continue to trend labs (4) Diabetes: Qualifiers: Diabetes mellitus complication status: without complication Diabetes mellitus termite control representative insulin use: with mcc use Diabetes mellitus type: type 2 Qualified Code(s): E11.9 - Type 2 diabetes mellitus without complications; Z79.4 - intermission coordinator (current) use of insulin Code(s): E11.9 - Type 2 diabetes mellitus without complications Status: Acute Assessment and Plan: * Current glucose 107 * Continue home meds * Trend glucose * Adjust medication as indicated (5) Hypertension: Qualifiers: Hypertension type: primary hypertension Qualified Code(s): I10 - Essential (primary) hypertension Code(s): I10 - Essential (primary) hypertension Status: Acute Assessment and Plan: * BP is 152/76 * Continue home losartan, amlodipine, carvedilol * Trend blood pressure * adjust therapy as indicated DS: Summary Hospital Course Hospital Course: 57-year-old male with past medical history significant for end-stage renal disease, patient had fistula placed is still maturing, type diabetes mellitus, hypertension, comes to the emergency room due to abdominal pain, nausea but no vomiting, cough, currently being treated for constipation. Patient states he feels better than yesterday because he had a small bowel movement.? Still uncomfortable, worried because it keeps coming back.? He states he goes back and forth from diarrhea and constipation all the time and is done with this experience and would like it treated before he goes home. Hyponatremia: check labs, perhaps glucosuria induced by dapgliflozin with volume loss with sodium diuresi may be contribution, stop dapagliflozin, no diuretics, may be to excess ingestion of fluid as well ?-CKD stage 5 : not? in need if immediate dialysis, work on AVF later -metabolic acidosis: sodium bicarbonate -anemia of CKD -SHPT:? on calcitriol, on sevelamer for high phosphorus -abdominal pain and constipation: Urine lytes, osmolality ordered alr
--- NOTE | 2022-12-13 11:26 | PM.DS ---
DS: Admitting Diagnosis Discharge Date 12/13/2022 Admitting Diagnosis Abdominal pain DS: Discharge Diagnosis Discharge Diagnosis (1) Hyponatremia: Code(s): E87.1 - Hypo-osmolality and hyponatremia Status: Acute Assessment and Plan: Na upon arrival 118 currently 124 2L bolus given in the ED Stated that is chronic Continue fluids for now Continue to trend labs Urine studies ordered Nephrology consulted thank you for your help (2) Constipation: Qualifiers: Constipation type: unspecified constipation type Qualified Code(s): K59.00 - Constipation, unspecified Code(s): K59.00 - Constipation, unspecified Status: Acute Assessment and Plan: Presented to the ED with complaints of constipation This would be his third visit over the last week CT does show moderate stool burden Miralax, colace, lactulose, suppositories, enemas ordered Consider GI consult Digital disimpaction (3) Chronic kidney disease: Qualifiers: Chronic kidney disease stage: stage 5, not on chronic dialysis Qualified Code(s): N18.5 - Chronic kidney disease, stage 5 Code(s): N18.9 - Chronic kidney disease, unspecified Status: Acute Assessment and Plan: Known history Current BUN/Cr 60/4.70 Fistula present awaiting to mature Nephrology consulted Continue to trend labs (4) Diabetes: Qualifiers: Diabetes mellitus complication status: without complication 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 insulin use: with nail making machine tender use Diabetes mellitus type: type 2 Qualified Code(s): E11.9 - Type 2 diabetes mellitus without complications; Z79.4 - lawn and garden technician (current) use of insulin Code(s): E11.9 - Type 2 diabetes mellitus without complications Status: Acute Assessment and Plan: Current glucose 107 Continue home meds Trend glucose Adjust medication as indicated (5) Hypertension: Qualifiers: Hypertension type: primary hypertension Qualified Code(s): I10 - Essential (primary) hypertension Code(s): I10 - Essential (primary) hypertension Status: Acute Assessment and Plan: BP is 152/76 Continue home losartan, amlodipine, carvedilol Trend blood pressure adjust therapy as indicated DS: Summary Hospital Course Hospital Course: 57-year-old male with past medical history significant for end-stage renal disease, patient had fistula placed is still maturing, type diabetes mellitus, hypertension, comes to the emergency room due to abdominal pain, nausea but no vomiting, cough, currently being treated for constipation. Patient states he feels better than yesterday because he had a small bowel movement.? Still uncomfortable, worried because it keeps coming back.? He states he goes back and forth from diarrhea and constipation all the time and is done with this experience and would like it treated before he goes home. Hyponatremia: check labs, perhaps glucosuria induced by dapgliflozin with volume loss with sodium diuresi may be contribution, stop dapagliflozin, no diuretics, may be to excess ingestion of fluid as well ?-CKD stage 5 : not? in need if immediate dialysis, work on AVF later -metabolic acidosis: sodium bicarbonate -anemia of CKD -SHPT:? on calcitriol, on sevelamer for high phosphorus -abdominal pain and constipation: Urine lytes, osmolality ordered already, maintain current, treat constipation On lactulose ?Patient admitted with constipation and abdominal pain.? This is resolved at present.? Long discussion with patient suggesting he may try MiraLax on a daily basis abdomen this necessary.? Likely he may only need this twice a week.? He may supplement this with a stool softener such as Colace or Metamucil.? Screening colonoscopy advised at age 59.? If constipation persists she should follow up in the GI office electively.? Otherwise should follow up
[2022-12-13 11:56] LABS: Hemoglobin A1C 5.9 % (<5.7)
[2022-12-14 21:01] LABS: Osmolality, Urine 149 mOsm/kg (50-1200)
== END 2022-12-13 12:01 | disposition home or self-care (01) ==
LOC: ANHED 12-11 05:11 → ANH3MEDSUR 12-11 10:09
PROVIDERS: Nurse Practitioner; Admitting Provider Internal Medicine; Emergency Provider Emergency Medicine; PCP Nurse Practitioner Family; Visit Provider Student in an Organized Health Care Education/Training Program
DX: K59.00 Constipation, unspecified (principal); I12.0 Hypertensive chronic kidney disease with stage 5 chronic kidney disease or end stage renal disease; E11.22 Type 2 diabetes mellitus with diabetic chronic kidney disease; N18.5 Chronic kidney disease, stage 5; Z99.2 Dependence on renal dialysis; E87.1 Hypo-osmolality and hyponatremia; B95.2 Enterococcus as the cause of diseases classified elsewhere; F10.90 Alcohol use, unspecified, uncomplicated; Z79.4 Long term (current) use of insulin; Z79.82 Long term (current) use of aspirin; Z79.02 Long term (current) use of antithrombotics/antiplatelets; Z79.84 Long term (current) use of oral hypoglycemic drugs; Z79.899 Other long term (current) drug therapy
CPT/HCPCS: 36415; 74176; 80053; 81001; 82570; 82948; 83036; 83690; 83735; 83935; 84300; 84540; 85025; 87086; 87147; 87181; 87186; 96361; 96365; 96374; 99285; A9270; G0378; J0696; J7030